=== PATIENT | female | born 1970 | race Caucasian/White ===

== ENCOUNTER → 2016-07-28 | Outpatient (CLI) | payer BC ==
[~2016-07-28] MED LIST: CELEXA20 MG PO; COLACE 100MG C100 MG PO; IBUPROFEN600 MG PO; NORCO 5-325 TA1 EACH PO
[2016-07-28 10:16] LABS: HEMOGLOBIN 15.9 gm/dl (12.3-15.3); RED BLOOD COUNT 5.35 M/UL (4.00-5.10); WHITE BLOOD COUNT 8.7 K/UL (4.5-11.0)
== END ==
LOC: OPSV2 09:00
PROVIDERS: Obstetrics & Gynecology
DX: Z01.812 Encounter for preprocedural laboratory examination (principal); N94.6 Dysmenorrhea, unspecified
CPT/HCPCS: 36415; 81001; 85025

== ENCOUNTER → 2016-08-06 | Day surgery (SDC) | payer BC | END | disposition home or self-care (01) | LOC: OR 08:00 | PROVIDERS: Obstetrics & Gynecology | PROC: 0U5B8ZZ Destruction of Endometrium, Via Natural or Artificial Opening Endoscopic (ICD-10-PCS; principal; 2016-08-06 10:00) | DX: N92.0 Excessive and frequent menstruation with regular cycle (principal); K21.9 Gastro-esophageal reflux disease without esophagitis; Z87.440 Personal history of urinary (tract) infections; Z82.49 Family history of ischemic heart disease and other diseases of the circulatory system; Z88.5 Allergy status to narcotic agent; Z90.49 Acquired absence of other specified parts of digestive tract; Z98.51 Tubal ligation status | CPT/HCPCS: J1100; J1885; J2250; J2405; J2765; J2795; J3010; J7030; J7120 ==